=== PATIENT | female | born 1995 | race Caucasian/White ===

== ENCOUNTER → 2019-02-04 09:52 | Outpatient (CLI) | payer OTHER, MEDICAID, SELFPAY ==
[2019-02-04 11:21] LABS: Add Manual Diff / Slide Review NO; Basophils Absolute Auto 100 /uL (0-100); Basophils Percent Auto 0.8 % (0-2); Eosinophils Absolute Auto 100 /uL (0-450); Eosinophils Percent Auto 1.9 % (2-4); Hematocrit 44.2 % (36-46); Lymphocytes Absolute Auto 2600 /uL (1100-4500); Lymphocytes Percent Auto 33.4 % (25-40); Mean Corpuscular Hemoglobin 30.4 PG (26-34); Mean Corpuscular Volume 89.3 fL (80-100); Monocytes Absolute Auto 500 /uL (0-900); Neutrophils Absolute Auto 4400 /uL (1500-7000); Neutrophils Percent Auto 57.9 % (50-75); Platelet Count 355 X10^3/uL (150-400); Red Blood Cell Count 4.94 X10^6/uL (4.0-5.2); Red Cell Distribution Width 13.1 % (11.6-14.8); White Blood Cell Count 7.7 X10^3/uL (4.5-11.0)
[2019-02-04 11:27] LABS: Appearance Urine UA CLEAR; Bilirubin Urine UA NEGATIVE (NEGATIVE); Color Urine UA YELLOW; Glucose Urine UA NEGATIVE (Negative); Ketones Urine UA NEGATIVE (NEGATIVE); Leukocyte Esterase Urine UA 1+ (NEGATIVE); Nitrite Urine UA NEGATIVE (Negative); Occult Blood Urine UA 1+ (Negative); Protein Urine UA NEGATIVE (Negative); Specific Gravity Urine UA 1.025 (1.000-1.035); Urobilinogen Urine UA 0.2 E.U./dL (0.2); pH Urine UA 5.5 (4.5-8.0)
[2019-02-04 11:51] LABS: Alanine Aminotransferase 39 IU/L (9-52); Albumin 4.1 g/dL (3.5-5.0); Albumin Globulin Ratio 1.5 (1.0-2.8); Alkaline Phosphatase 54 U/L (38-126); Aspartate Aminotransferase 22 IU/L (14-36); BUN Creatinine Ratio 21.7 (6-22); Bilirubin Total 0.5 mg/dL (0.2-1.3); Blood Urea Nitrogen 13 mg/dL (7-17); Calcium 9.1 mg/dL (8.4-10.2); Carbon Dioxide 26 mmol/L (22-32); Chloride 107 mmol/L (98-107); Cholesterol 146 mg/dL (140-199); Estimated Glomerular Filt Rate > 60.0 mL/min (>60); Globulin 2.7 g/dL (1.7-4.1); Glucose 86 mg/dL (70-100); HDL Cholesterol 34 mg/dL (40-60); HEMOLYSIS < 15 (0-50); LDL Cholesterol Calculated 80 mg/dL (<100); Potassium 4.1 mmol/L (3.4-5.1); Sodium 143 mmol/L (137-145); Total Protein 6.8 g/dL (6.3-8.2); Triglycerides 162 mg/dL (35-150)
[2019-02-04 12:17] LABS: Thyroid Stimulating Hormone 3.14 uIU/mL (0.47-4.68)
[2019-02-04 12:19] LABS: Bacteria Urine Moderate (10-30); Culture Indicated Urine Specimen Cultured; RBC Urine 1-5/HPF (0-5/HPF); Squamous Epithelial Cell Urine 1-5 /HPF (0-5/HPF); WBC Urine 5-10/HPF (0-5/HPF)
== END ==
PROVIDERS: PCP Family Medicine; Visit Provider Family Medicine
DX: E28.2 Polycystic ovarian syndrome (principal); F32.9 Major depressive disorder, single episode, unspecified; F41.9 Anxiety disorder, unspecified; Z13.220 Encounter for screening for lipoid disorders; Z13.29 Encounter for screening for other suspected endocrine disorder; Z51.81 Encounter for therapeutic drug level monitoring
CPT/HCPCS: 36415; 80053; 80061; 81003; 81015; 83036; 84443; 85025; 87086

== ENCOUNTER → 2019-09-06 11:54 | Outpatient (CLI) | payer OTHER, MEDICAID, SELFPAY ==
--- NOTE | 2019-09-06 | DI.RAD.S_ITS ---
PROCEDURE: XR ANKLE RT MIN 3V INDICATIONS: sprain of right ankle TECHNIQUE: 3 views of the ankle were acquired. COMPARISON: None. FINDINGS: Bones: No fractures or dislocations. There are retrocalcaneal and plantar calcaneal enthesophytes. Ankle mortise is normally aligned. No suspicious bony lesions. Soft tissues: No tibiotalar joint effusion. Achilles tendon appears normal. IMPRESSION: Right ankle without acute fracture or dislocation. Plantar calcaneal and retrocalcaneal enthesopathy. Dictated by: Deangelo Fermin M.D. on 09/06/2019 at 16:13 Approved by: Deangelo Fermin M.D. on 09/06/2019 at 16:14
== END ==
PROVIDERS: PCP Family Medicine; Referring Provider Family Medicine; Visit Provider Family Medicine
DX: S93.401A Sprain of unspecified ligament of right ankle, initial encounter (principal); M77.31 Calcaneal spur, right foot; X58.XXXA Exposure to other specified factors, initial encounter
CPT/HCPCS: 73610

== ENCOUNTER → 2019-09-21 12:20 | Outpatient (CLI) | payer OTHER, MEDICAID, SELFPAY ==
[2019-09-21 13:02] LABS: Add Manual Diff / Slide Review NO; Basophils Absolute Auto 0 /uL (0-100); Basophils Percent Auto 0.5 % (0-2); Eosinophils Absolute Auto 100 /uL (0-450); Eosinophils Percent Auto 1.5 % (2-4); Hematocrit 44.5 % (36-46); Hemoglobin 15.5 g/dL (12.0-16.0); Lymphocytes Absolute Auto 2600 /uL (1100-4500); Lymphocytes Percent Auto 34.7 % (25-40); Mean Corpuscular HGB Conc 34.7 % (30-36); Mean Corpuscular Hemoglobin 31.2 PG (26-34); Mean Corpuscular Volume 89.9 fL (80-100); Monocytes Absolute Auto 600 /uL (0-900); Monocytes Percent Auto 8.3 % (3-14); Neutrophils Absolute Auto 4200 /uL (1500-7000); Platelet Count 384 X10^3/uL (150-400); Red Blood Cell Count 4.95 X10^6/uL (4.0-5.2); Red Cell Distribution Width 13.1 % (11.6-14.8); White Blood Cell Count 7.6 X10^3/uL (4.5-11.0)
[2019-09-21 13:30] LABS: Hemoglobin A1C% w Est Avg Glu 5.1 % (4.0-6.0)
[2019-09-21 13:46] LABS: Alanine Aminotransferase 44 IU/L (<35); Albumin 4.4 g/dL (3.5-5.0); Albumin Globulin Ratio 1.6 (1.0-2.8); Alkaline Phosphatase 63 U/L (38-126); Aspartate Aminotransferase 24 IU/L (14-36); BUN Creatinine Ratio 21.7 (6-22); Bilirubin Total 0.4 mg/dL (0.2-1.3); Blood Urea Nitrogen 13 mg/dL (7-17); Calcium 9.9 mg/dL (8.4-10.2); Carbon Dioxide 26 mmol/L (22-32); Chloride 107 mmol/L (98-107); Cholesterol 134 mg/dL (140-199); Estimated Glomerular Filt Rate > 60.0 mL/min (>60); Globulin 2.7 g/dL (1.7-4.1); Glucose 80 mg/dL (70-100); HDL Cholesterol 33 mg/dL (40-60); HEMOLYSIS < 15 (0-50); LDL Cholesterol Calculated 56 mg/dL (<100); Potassium 4.7 mmol/L (3.4-5.1); Sodium 142 mmol/L (137-145); Total Protein 7.1 g/dL (6.3-8.2); Triglycerides 223 mg/dL (35-150)
[2019-09-21 14:16] LABS: Thyroid Stimulating Hormone 3.88 uIU/mL (0.47-4.68)
== END ==
PROVIDERS: PCP Family Medicine; Referring Provider Family Medicine; Visit Provider Family Medicine
DX: Z00.00 Encounter for general adult medical examination without abnormal findings (principal)
CPT/HCPCS: 36415; 80053; 80061; 83036; 84443; 85025

== ENCOUNTER → 2020-02-09 14:37 | Outpatient (CLI) | payer OTHER, MEDICAID, SELFPAY ==
--- NOTE | 2020-02-09 14:38 | DI.US.S_ITS ---
PROCEDURE: US PELVIC COMPLETE INDICATIONS: IUD STRING NOT VISUALIZED TECHNIQUE: Real-time scanning was performed of the pelvic organs, with image documentation. Additional endovaginal scanning was necessary due to incomplete visualization of the adnexal and endometrial structures by transabdominal scanning. COMPARISON: None. FINDINGS: Transabdominal scanning: Limited scanning through the kidneys shows no hydronephrosis. No pathologic free abdominal or pelvic fluid. There is an IUD is in place but appears low lying, partially extending into the endocervical canal. Endovaginal scanning: Uterus: Uterus is normal in size at 4.0 x 5.5 x 7.2 cm, anteverted. The endometrium measures 6.0 mm in combined thickness. Ovaries: The right ovary is not seen. The left ovary measures 3.2 x 3.7 x 5.2 cm IMPRESSION: Normal left ovary, nonvisualization of the right ovary due to bowel gas. IUD noted centrally within the endometrial space but low lying, partially extending into the endocervical canal. Dictated by: Zack Barahona M.D. on 02/09/2020 at 16:20 Approved by: Zack Barahona M.D. on 02/09/2020 at 16:23
== END ==
PROVIDERS: PCP Family Medicine; Referring Provider Family Medicine; Visit Provider Family Medicine
DX: T83.32XA Displacement of intrauterine contraceptive device, initial encounter (principal)
CPT/HCPCS: 76830; 76856

== ENCOUNTER 2020-08-12 19:43 | Emergency (ER) | payer OTHER, MEDICAID, SELFPAY ==
[2020-08-12 19:53] VITALS: BP 121/76; PULSE 86; RESP 16; TEMP 36.9; O2SAT 97; BMI 50.1
--- NOTE | 2020-08-12 20:04 | DI.US.S_ITS ---
PROCEDURE: US PELVIC COMPLETE INDICATIONS: VAGINAL BLEEDING X 5 WEEKS TECHNIQUE: Real-time scanning was performed of the pelvic organs, with image documentation. Additional endovaginal scanning was necessary due to incomplete visualization of the adnexal and endometrial structures by transabdominal scanning. COMPARISON: [facility], , US PELVIC COMPLETE, 02/09/2020, 15:25. FINDINGS: Transabdominal scanning: Limited scanning through the kidneys shows no hydronephrosis. Trace free fluid in the pelvis. Endovaginal scanning: Uterus: Uterus is anteverted and normal in size at 6.7 x 5.8 x 3.6 cm. No uterine fibroids seen. The endometrium measures 4 mm in combined thickness. IUD centered in the endometrial cavity. Cervix is unremarkable. Ovaries: Right ovary is not seen. Left ovary measures 4.2 x 3.7 x 3.4 cm. Numerous small left ovarian follicles. IMPRESSION: 1. IUD is in satisfactory position centered in the uterine cavity. Unremarkable cervix. 2. Right ovary is not seen. Multiple small follicles in the left ovary. 3. Trace fluid in the pelvis is within physiologic limits. Dictated by: Víctor Dupree M.D. on 08/12/2020 at 21:44 Approved by: Víctor Dupree M.D. on 08/12/2020 at 21:47
[2020-08-12 20:29] LABS: RBC Urine 1-5/HPF (0-5/HPF); Squamous Epithelial Cell Urine 1-5 /HPF (0-5/HPF); WBC Urine 10-30/HPF (0-5/HPF)
[2020-08-12 20:30] LABS: Add Manual Diff / Slide Review NO; Basophils Absolute Auto 100 /uL (0-100); Basophils Percent Auto 0.9 % (0-2); Eosinophils Absolute Auto 100 /uL (0-450); Eosinophils Percent Auto 1.2 % (2-4); Hematocrit 44.2 % (36-46); Hemoglobin 15.1 g/dL (12.0-16.0); Lymphocytes Absolute Auto 3100 /uL (1100-4500); Lymphocytes Percent Auto 32.2 % (25-40); Mean Corpuscular HGB Conc 34.2 % (30-36); Mean Corpuscular Hemoglobin 30.8 PG (26-34); Mean Corpuscular Volume 90.1 fL (80-100); Monocytes Absolute Auto 600 /uL (0-900); Monocytes Percent Auto 6.1 % (3-14); Neutrophils Absolute Auto 5700 /uL (1500-7000); Neutrophils Percent Auto 59.6 % (50-75); Platelet Count 374 X10^3/uL (150-400); Red Cell Distribution Width 13.3 % (11.6-14.8); White Blood Cell Count 9.5 X10^3/uL (4.5-11.0)
[2020-08-12 20:30] LABS: Bacteria Urine Occasional (0-1); Culture Indicated Urine Specimen Cultured
[2020-08-12 21:03] VITALS: BP 119/74; PULSE 81; RESP 18; O2SAT 96
--- NOTE | 2020-08-13 03:14 | ED_ITS ---
HPI - Female Genitourinary General Chief complaint: Vaginal Bleeding Stated complaint: states 5th week of period Time Seen by Provider: 08/12/20 19:44 Source: patient Mode of arrival: Ambulatory Limitations: no limitations History of Present Illness HPI Narrative: 24F never smoker with history of PCOS presents with a chief complaint of about 5 weeks of vaginal bleeding. At its heaviest she would use perhaps 2-3 pads per day, most recently she has been using 1 pad per day. She denies any pain. She is not dizzy nor weak or lightheaded. She denies any change in her medications. She is not sexually active Related Data Home Medications Medication Instructions Recorded Confirmed cholecalciferol (vitamin D3) PO 01/02/20 04/17/20 diphenhydramine 25 1 tab PO BEDTIME PRN 01/02/20 04/17/20 mg-acetaminophen 500 mg tablet omeprazole 20 mg tablet,delayed 20 mg PO DAILY 02/06/20 04/17/20 release Previous Rx's Medication Instructions Recorded miconazole nitrate 2 % topical 1 spray TOP BID PRN #133 gram 03/25/19 spray powder buspirone 15 mg tablet 15 mg PO BID #180 tab 04/17/20 triamcinolone acetonide 0.1 % 1 applictn TOP BID #30 gram 04/17/20 topical cream sulfamethoxazole-trimethoprim 1 tab PO BID 5 Days #10 tab 08/12/20 [Bactrim DS] Allergies Allergy/AdvReac Type Severity Reaction Status Date / Time No Known Drug Allergies Allergy Verified 08/12/20 19:52 Review of Systems Genitourinary Genitourinary: Reports abnormal vaginal bleeding Patient History Medical History Allergic dermatitis Anxiety (~1993) Depression (~1998) PCOS (polycystic ovarian syndrome) Post traumatic stress disorder (PTSD) (~2012) Right ankle sprain Seizure Spinal stenosis (~2017) Well female exam with routine gynecological exam Well female exam without gynecological exam Surgical History Anesthesia History of cholecystectomy (~2011) History of tonsillectomy Family History Father History of heart disease Back problem Mother Back problem Sister Knee problem Grandmother Diabetes mellitus History of heart disease History of kidney problems Arthritis alcohol intake frequency: holidays/special occasions only Substance Use Type: marijuana Exam Narrative Exam Narrative: GEN: AOx3 and in mild distress EYES: Pupils are equal, round, and reactive to light and accommodation. Extraoccular muscles are intact bilaterally. There is no subconjunctival hemorrhage or exudate. CHEST: Lungs are clear to auscultation bilaterally and free of wheezes, rales, or rhonchi. Heart rate is regular rhythm, there are no murmurs, clicks, rubs, or gallops. There is no chest wall tenderness. ABD: Abdomen is soft and nontender. There is no guarding or rebound. Bowel sounds are normal in all 4 quadrants. There is no mass or organomegaly. PELVIC: Deferred given minimal bleeding and lack of discharge or pain EXT: Full painless ROM of all extremities with no loss of sensation or strength. SKIN: Warm, pink, and dry. No erythema or rash Initial Vital Signs Initial Vital Signs: Vital Signs Temperature 98.5 F 08/12/20 19:53 Pulse Rate 86 08/12/20 19:53 Respiratory Rate 16 08/12/20 19:53 Blood Pressure 121/76 08/12/20 19:53 Pulse Oximetry 97 08/12/20 19:53 Course Orders Ordered: ED Orders 08/12/20 20:04 US pelvic complete Stat 08/12/20 20:07 Urine Culture Stat Urine Microscopic Stat 08/12/20 20:18 Complete Blood Count AUTO DIFF Stat Vital Signs Vital signs: Vital Signs - 8 hr 08/12/20 19:53 08/12/20 21:03 Temperature 98.5 F Pulse Rate 86 81 Respiratory Rate 16 18 Blood Pressure 121/76 119/74 Pulse Oximetry 97 96 MDM - Female Genitourinary Lab Data Result diagrams: 08/12/20 20:18 Labs: Lab Results 08/12/20 08/12/20 Range/Units 20:07 20:18 WBC 9.5 (4.5-11.0) X10^3/uL RBC 4.90 (4.0-5.2) X10^6/uL Hgb 15.1 (12.0-16.0) g/dL Hct 44.2 (36-46) % MCV 90.1 (80-100) fL MCH 30.8 (26-34) PG MCHC 34.2 (30-36) % RDW 13.3 (11.6-14.8) % Plt Count 374 (150-400) X10^3/uL Neut % (Auto) 59.6 (50-75) % Lymph % (Auto) 32.2 (25-40) % [place] % (Auto) 6.1 (3-14) % Eos % (Auto) 1.2 L (2-4) % Baso % (Auto) 0.9 (0-2) % Neut # (Auto) 5700 (2938-5437) /uL Lymph # (Auto) 3100 (0847-1586) /uL [place] # (Auto) 600 (0-900) /uL Eos # (Auto) 100 (0-450) /uL Baso # (Auto) 100 (0-100) /uL Urine RBC 1-5/hpf (0-5/HPF) Urine WBC 10-30/hpf H (0-5/HPF) Ur Squamous Epith Cells 1-5 /hpf (0-5/HPF) Urine Bacteria Occasional (0-1) D (None) Ur Culture Indicated? 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 Extraoccular muscles are intact bilaterally. There is no subconjunctival he morrhage or exudate. CHEST: Lungs are clear to auscultation bilaterally and free of wheezes, rales, or rhonchi. Heart rate is regular rhythm, there are no murmurs, clicks, rubs, or gallops. There is no chest wall tenderness. ABD: Abdomen is soft and nontender. There is no guarding or rebound. Bowel sounds are normal in all 4 quadrants. There is no mass or organomegaly. EXT: Full painless ROM of all extremities with no loss of sensation or strength. SKIN: Warm, pink, and dry. No erythema or rash MDM Narrative Medical decision making narrative: Patient with vaginal bleeding present for the past 5 weeks. She states that it is minimal which is consistent with her normal appearing ultrasound, stable labs and vitals. Medroxyprogesterone considered but decided not to use based on minimal bleeding. Urine demonstrates presence of UTI. Return precautions given patient is in agreement and understanding with the plan. Questions answered to her apparent satisfaction Discharge Plan Departure Patient Disposition: Home Clinical Impression: Abnormal vaginal bleeding UTI (urinary tract infection) Qualifiers: Urinary tract infection type: site unspecified Hematuria presence: with hematuria Qualified Code(s): N39.0 - Urinary tract infection, site not specified Instructions: DI for Urinary Tract Infection (UTI), DI for Vaginal Bleeding Activity Restrictions/Additional Instructions: *You have been diagnosed with [vaginal bleeding with UTI] *What to do: *Take medications as directed *Follow up with your primary care provider in 2-3 days, call for an appointment. Let them know you were seen in the Emergency Department and that we ask that you be seen in follow up. Also, given you contact information for the housekeeper and laundry assistant on-call, she would be a very appropriate person to follow-up with as well *Return to ER if you should have any new, worsening or concerning symptoms, such as [increased bleeding, through 1 pad per hour for multiple hours, fever greater than 101 F, significant pain or other bothersome symptoms] Prescriptions: New sulfamethoxazole-trimethoprim [Bactrim DS] 800-160 mg tablet 1 tab PO BID 5 Days Qty: 10 RF: 0 No Action diphenhydramine-acetaminophen [Tylenol PM Extra Strength] 25-500 mg tablet 1 tab PO BEDTIME PRNRF: 0 cholecalciferol (vitamin D3) PO RF: 0 miconazole nitrate [Lotrimin AF Jock Itch Powder] 2 % aerosol powder 1 spray TOP BID PRN (Reason: rash) Qty: 133 RF: 0 omeprazole 20 mg tablet,delayed release (DR/EC) 20 mg PO DAILY RF: 0 triamcinolone acetonide 0.1 % cream 1 applictn TOP BID Qty: 30 RF: 1 buspirone 15 mg tablet 15 mg PO BID Qty: 180 RF: 1 Referrals: Divya Moeller MD [Physician] - Hai Croft DO [Primary Care Provider] -
== END 2020-08-12 21:07 | disposition home or self-care (01) ==
PROVIDERS: Emergency Provider Emergency Medicine; PCP Family Medicine
DX: N93.9 Abnormal uterine and vaginal bleeding, unspecified (principal); N39.0 Urinary tract infection, site not specified
CPT/HCPCS: 36415; 76830; 76856; 81003; 81015; 81025; 85025; 87086; 99283; 99284

== ENCOUNTER → 2021-04-15 17:12 | Outpatient (CLI) | payer OTHER, MEDICAID, SELFPAY ==
[2021-04-15 18:09] LABS: Add Manual Diff / Slide Review NO; Basophils Absolute Auto 0 /uL (0-100); Basophils Percent Auto 0.5 % (0-2); Eosinophils Absolute Auto 200 /uL (0-450); Eosinophils Percent Auto 1.7 % (2-4); Hematocrit 44.1 % (36-46); Hemoglobin 15.1 g/dL (12.0-16.0); Lymphocytes Absolute Auto 3100 /uL (1100-4500); Lymphocytes Percent Auto 32.6 % (25-40); Mean Corpuscular HGB Conc 34.2 % (30-36); Mean Corpuscular Hemoglobin 30.8 PG (26-34); Mean Corpuscular Volume 90.1 fL (80-100); Monocytes Absolute Auto 500 /uL (0-900); Monocytes Percent Auto 4.7 % (3-14); Neutrophils Absolute Auto 5700 /uL (1500-7000); Neutrophils Percent Auto 60.5 % (50-75); Platelet Count 390 X10^3/uL (150-400); Red Blood Cell Count 4.89 X10^6/uL (4.0-5.2); Red Cell Distribution Width 12.7 % (11.6-14.8); White Blood Cell Count 9.5 X10^3/uL (4.5-11.0)
[2021-04-15 18:37] LABS: Alanine Aminotransferase 54 IU/L (<35); Albumin 4.5 g/dL (3.5-5.0); Albumin Globulin Ratio 1.6 (1.0-2.8); Alkaline Phosphatase 50 U/L (38-126); Aspartate Aminotransferase 31 IU/L (14-36); BUN Creatinine Ratio 18.5 (6-22); Bilirubin Total 0.3 mg/dL (0.2-1.3); Blood Urea Nitrogen 12 mg/dL (7-17); Calcium 9.6 mg/dL (8.4-10.2); Carbon Dioxide 29 mmol/L (22-32); Chloride 108 mmol/L (98-107); Cholesterol 157 mg/dL (140-199); Estimated Glomerular Filt Rate > 60.0 mL/min (>60); Globulin 2.8 g/dL (1.7-4.1); Glucose 87 mg/dL (70-100); HDL Cholesterol 35 mg/dL (40-60); HEMOLYSIS < 15 (0-50); LDL Cholesterol Calculated 68 mg/dL (<100); Potassium 4.6 mmol/L (3.4-5.1); Sodium 142 mmol/L (137-145); Total Protein 7.3 g/dL (6.3-8.2); Triglycerides 270 mg/dL (35-150)
[2021-04-15 18:39] LABS: Hemoglobin A1C% w Est Avg Glu 5.3 % (4.0-6.0)
[2021-04-15 19:08] LABS: TSH w/ Reflex to FT4 1.99 uIU/mL (0.47-4.68)
[2021-04-15 19:32] LABS: Urine N gonorrhoeae NOT DETECTED
[2021-04-15 19:44] LABS: Urine Chlamydia NOT DETECTED
[2021-04-15 20:13] LABS: HIV 1 & 2 Ab/Ag 4th Gen Combo NEGATIVE (NEGATIVE)
[2021-04-16 07:09] LABS: RPR Screen Non Reactive (Non Reactive)
[2021-04-16 09:35] LABS: HBsAg Screen Negative (Negative); Hepatitis A Antibody IgM Negative (Negative); Hepatitis B Core Antibody IgM Negative (Negative); Hepatitis C Antibody <0.1 s/co ratio (0.0-0.9)
== END ==
PROVIDERS: PCP Family Medicine; Referring Provider Family Medicine; Visit Provider Family Medicine
DX: Z00.00 Encounter for general adult medical examination without abnormal findings (principal)
CPT/HCPCS: 36415; 80053; 80061; 80074; 83036; 84443; 85025; 86592; 86696; 87389; 87491; 87591

== ENCOUNTER → 2021-06-04 14:32 | Outpatient (CLI) | payer OTHER, MEDICAID, SELFPAY ==
--- NOTE | 2021-06-04 14:33 | DI.US.S_ITS ---
PROCEDURE: US PELVIC COMPLETE INDICATIONS: PELVIC PAIN. FOLLOW UP OVARIAN CYST. TECHNIQUE: Real-time scanning was performed of the pelvic organs, with image documentation. Additional endovaginal scanning was necessary due to incomplete visualization of the adnexal and endometrial structures by transabdominal scanning. COMPARISON: [facility], [place], US PELVIC COMPLETE, 02/09/2020, 15:25. [facility], [place], US PELVIC COMPLETE, 08/12/2020, 20:36. FINDINGS: Uterus: Uterus is normal in size at 6.7 x 5 x 4 cm. The endometrium measures 5-6 mm in combined thickness. An IUD is seen, which appears inferiorly located, with the superior portion of it along the mid uterus. The cross bars are not well seen on this study. Incidental note is made of nabothian cysts. A trace amount of anechoic fluid can be seen along the cervix. Ovaries: The right ovary measures 4.2 x 3.8 x 3.7 cm. The left ovary measures 5 x 3.8 x 3.3 cm. Approximately 30 follicles can be seen involving the left ovary. The number of right ovarian follicles is poorly assessed, secondary to active right ovary is not well seen. A paraovarian cyst can be seen adjacent to the left ovary that measures up to 1.6 cm. No adnexal masses are seen. Other: No pathologic free abdominal or pelvic fluid. This study is limited by body habitus. IMPRESSION: No abnormally enlarged ovarian cysts can be seen. A proximal 30 follicles can be seen involving the left ovary. Polycystic ovarian syndrome is suspected. Low position of the IUD. The cross bars of the IUD are not well seen. Dictated by: Wilner Wilks M.D. on 06/04/2021 at 15:44 Approved by: Wilner Wilks M.D. on 06/04/2021 at 15:47
== END ==
PROVIDERS: PCP Family Medicine; Referring Provider Family Medicine; Visit Provider Family Medicine
DX: N83.209 Unspecified ovarian cyst, unspecified side (principal); R10.2 Pelvic and perineal pain; Z97.5 Presence of (intrauterine) contraceptive device
CPT/HCPCS: 76830; 76856

== ENCOUNTER → 2021-07-26 12:59 | Outpatient (CLI) | payer OTHER, MEDICAID, SELFPAY ==
[2021-07-26 13:30] LABS: COVID19 -Nasal RAPID Negative (Negative)
== END ==
PROVIDERS: PCP Family Medicine; Visit Provider Nurse Practitioner Family
DX: Z20.822 Contact with and (suspected) exposure to COVID-19 (principal)
CPT/HCPCS: 87635

== ENCOUNTER → 2021-11-23 07:59 | Outpatient (CLI) | payer OTHER, MEDICAID, SELFPAY ==
[2021-11-23 09:37] LABS: Add Manual Diff / Slide Review NO; Basophils Absolute Auto 100 /uL (0-100); Basophils Percent Auto 0.8 % (0-2); Eosinophils Absolute Auto 100 /uL (0-450); Eosinophils Percent Auto 1.8 % (2-4); Hematocrit 43.9 % (36-46); Hemoglobin 14.6 g/dL (12.0-16.0); Lymphocytes Absolute Auto 2400 /uL (1100-4500); Lymphocytes Percent Auto 35.4 % (25-40); Mean Corpuscular HGB Conc 33.4 % (30-36); Monocytes Absolute Auto 400 /uL (0-900); Monocytes Percent Auto 6.6 % (3-14); Neutrophils Absolute Auto 3700 /uL (1500-7000); Neutrophils Percent Auto 55.4 % (50-75); Platelet Count 365 X10^3/uL (150-400); Red Blood Cell Count 4.87 X10^6/uL (4.0-5.2); Red Cell Distribution Width 13.3 % (11.6-14.8); White Blood Cell Count 6.7 X10^3/uL (4.5-11.0)
[2021-11-23 10:03] LABS: Alanine Aminotransferase 38 IU/L (<35); Albumin 4.2 g/dL (3.5-5.0); Albumin Globulin Ratio 1.4 (1.0-2.8); Alkaline Phosphatase 50 U/L (38-126); Aspartate Aminotransferase 26 IU/L (14-36); BUN Creatinine Ratio 16.7 (6-22); Bilirubin Total 0.4 mg/dL (0.2-1.3); Blood Urea Nitrogen 11 mg/dL (7-17); Calcium 8.9 mg/dL (8.4-10.2); Carbon Dioxide 25 mmol/L (22-32); Chloride 110 mmol/L (98-107); Cholesterol 157 mg/dL (140-199); Estimated Glomerular Filt Rate > 60 mL/min (>60); Globulin 2.9 g/dL (1.7-4.1); Glucose 102 mg/dL (70-100); HDL Cholesterol 35 mg/dL (40-60); HEMOLYSIS < 15 (0-50); LDL Cholesterol Calculated 83 mg/dL (<100); Potassium 3.9 mmol/L (3.4-5.1); Sodium 143 mmol/L (137-145); Total Protein 7.1 g/dL (6.3-8.2); Triglycerides 194 mg/dL (35-150)
[2021-11-23 10:33] LABS: Thyroid Stimulating Hormone 0.468 uIU/mL (0.47-4.68)
[2021-11-23 10:46] LABS: Hemoglobin A1C% w Est Avg Glu 5.5 % (4.0-6.0)
== END ==
PROVIDERS: PCP Family Medicine; Referring Provider Family Medicine; Visit Provider Family Medicine
DX: E74.39 Other disorders of intestinal carbohydrate absorption (principal); Z83.3 Family history of diabetes mellitus; Z13.220 Encounter for screening for lipoid disorders; Z13.6 Encounter for screening for cardiovascular disorders; Z13.29 Encounter for screening for other suspected endocrine disorder
CPT/HCPCS: 36415; 80053; 80061; 83036; 84443; 85025

== ENCOUNTER → 2022-03-26 10:46 | Outpatient (CLI) | payer OTHER, MEDICAID, SELFPAY ==
--- NOTE | 2022-03-26 10:47 | DI.US.S_ITS ---
PROCEDURE: US PELVIC COMPLETE INDICATIONS: lost iud strings TECHNIQUE: Real-time scanning was performed of the pelvic organs, with image documentation. Additional endovaginal scanning was necessary due to incomplete visualization of the adnexal and endometrial structures by transabdominal scanning. COMPARISON: [facility], US, US PELVIC COMPLETE, 06/04/2021, 15:07. FINDINGS: Uterus: Uterus is anteverted and normal in size at 7.4 x 4.0 x 5.2 cm. The myometrium is homogeneous. The endometrium measures 4.2 mm combined thickness. IUD is difficult to visualize. There is appearance of increased echogenicity possibly within the lower uterine segment although incompletely visualized. Ovaries: The right ovary measures 5.0 x 3.2 x 3.3 cm, with a calculated ovarian volume of 27.5 cc. The left ovary measures 4.6 x 3.4 x 3.9 cm, with a calculated ovarian volume of 31 point 9 cc. The ovaries have a normal sonographic appearance. Less than 12 follicles can be seen in each ovary. No adnexal masses are seen. Prominent follicle is noted on the left ovary measuring 1.6 cm. Other: No pathologic free abdominal or pelvic fluid. IMPRESSION: IUD is visualized although poorly characterized secondary to patient body habitus. It appears to be within the uterus with a portion in the lower uterine segment. We strive to produce accurate, complete, and clear reports of imaging services. To assist us in improving patient care, this report was composed using standard report templates and voice recognition software. Therefore, it may contain abnormal punctuation, insertions and/or omissions. Occasional wrong-word or sound-alike substitutions may occur. Though we review the report and make efforts to correct it, we do recommend that the report be read carefully in proper context to recognize any text inaccuracies. Dictated by: Promise Sterling M.D. on 03/26/2022 at 17:13 Approved by: Promise Sterling M.D. on 03/26/2022 at 17:15
== END ==
PROVIDERS: PCP Family Medicine; Referring Provider Family Medicine; Visit Provider Family Medicine
DX: T83.32XA Displacement of intrauterine contraceptive device, initial encounter (principal)
CPT/HCPCS: 76830; 76856

== ENCOUNTER → 2022-07-01 11:08 | Outpatient (CLI) | payer OTHER, MEDICAID, SELFPAY ==
[2022-07-01 17:12] LABS: Influenza A - CEPHEID Flu A NEGATIVE (NEGATIVE); Influenza B - CEPHEID Flu B NEGATIVE (NEGATIVE); Respiratory Syncytial Virus Negative (Negative)
[2022-07-01 17:23] LABS: COVID-19 CEPHEID 4-PLEX PCR Negative (Negative)
== END ==
PROVIDERS: PCP Family Medicine; Visit Provider Physician Assistant Medical
DX: R05.1 Acute cough (principal)
CPT/HCPCS: 0241U

== ENCOUNTER → 2022-08-21 14:23 | Outpatient (CLI) | payer OTHER, MEDICAID, SELFPAY ==
[2022-08-21 15:18] LABS: Pregnancy Test Urine Negative (Negative)
[2022-08-21 16:42] LABS: Urine N gonorrhoeae NOT DETECTED
[2022-08-21 16:46] LABS: Urine Chlamydia NOT DETECTED
[2022-08-21 16:52] LABS: Hepatitis B Surface Antigen NEGATIVE s/c (NEGATIVE)
[2022-08-21 16:57] LABS: HIV 1 & 2 Ab/Ag 4th Gen Combo NEGATIVE (NEGATIVE)
[2022-08-21 18:07] LABS: Hep C Virus Ab w/Reflex Quant REACTIVE s/c (NEGATIVE)
[2022-08-22 04:09] LABS: HSV 2 IGG AB < 0.91 index (0.00-0.90); HSV1IGG < 0.91 index (0.00-0.90)
[2022-08-22 07:23] LABS: RPR Screen Non Reactive (Non Reactive)
== END ==
PROVIDERS: PCP Family Medicine; Referring Provider Nurse Practitioner Family; Visit Provider Nurse Practitioner Family
DX: Z20.2 Contact with and (suspected) exposure to infections with a predominantly sexual mode of transmission (principal); Z72.51 High risk heterosexual behavior
CPT/HCPCS: 36415; 81025; 86592; 86695; 86696; 86803; 87340; 87389; 87491; 87522; 87591